=== PATIENT | female | born 1965 | race African-American/Black ===

== ENCOUNTER 2017-10-20 12:00 | Emergency (ER) | payer SELFPAY ==
[~2017-10-20] VITALS: Ht 157.5 cm; Wt 110.0 kg
[2017-10-20 12:15] VITALS: BP 165/90; PULSE 85; RESP 16; TEMP 98.1; O2SAT 100
[2017-10-20 13:06] VITALS: BP 167/106; PULSE 76; RESP 18; O2SAT 100
[2017-10-20] MEDS ORDERED: ASPI-516 CHEW (13:06)
--- NOTE | 2017-10-20 13:07 | PD ---
HPI Chief Complaint: Pain: Acute or Chronic Time Seen by Provider: 12:56 Travel History International Travel<30 days: No Contact w/Intl Traveler<30days: No Traveled to known affect area: No History of Present Illness HPI 52 YO F with PMH of CAD, s/p stent presents to the ED for evaluation of 1 month history of intermittent 2/10 posterior right calf pain. Pain is described as dull, no alleviating factors reported. She states that she does laps around the track and occasionally this exacerbates the pain but not every time. Radiates into the anterior eller. Onset approximately 1 month ago. She endorses preceding long drive, [place] She denies fevers, chills, shortness of breath, chest pain, palpitations. Patient takes an aspirin daily. She is a nonsmoker, does not use oral contraception, has never had a blood clot. She treated at home with Aleve with some improvement of symptoms. PFSH Past Medical History Cardiovascular Problems: Yes Social History Tobacco Use: No Allergies-Medications (Allergen,Severity, Reaction): Coded Allergies: No Known Allergies (Verified Allergy, Unknown, 10/20/17) Reported Meds & Prescriptions Reported Meds & Active Scripts Active Ibuprofen 600 Mg Tab 600 Mg PO Q8H Reported Aspirin 81 Mg Chew 81 Mg CHEW DAILY Review of Systems Except as stated in HPI: all other systems reviewed are Neg Physical Exam Narrative GENERAL: Well-nourished, well-developed pleasant -[place] female no acute distress. SKIN: Focused skin assessment warm/dry. HEAD: Normocephalic. EYES: No scleral icterus. No injection or drainage. NECK: Supple, trachea midline. No JVD or lymphadenopathy. CARDIOVASCULAR: Regular rate and rhythm without murmurs, gallops, or rubs. RESPIRATORY: Breath sounds equal bilaterally. No accessory muscle use. GASTROINTESTINAL: Abdomen soft, non-tender, nondistended. MUSCULOSKELETAL: No cyanosis, or edema. Ashleigh sign negative. No TTP of the anterior eller. Bounding DP pulse. Patient retains full, active, painless R OM of the extremity. She walks with a normal gait. BACK: Nontender without obvious deformity. No CVA tenderness. Data Data Last Documented VS Vital Signs Date Time Temp Pulse Resp B/P (MAP) Pulse Ox O2 Delivery O2 Flow Rate FiO2 10/20/17 16:57 10/20/17 13:06 76 18 100 Room Air 10/20/17 12:15 98.1 Orders Orders Us Leg Venous Doppler (10/20/17 12:57) Ed Discharge Order (10/20/17 16:35) [facility] Medical Decision Making Medical Screen Exam Complete: Yes Emergency Medical Condition: Yes Differential Diagnosis Musculoskeletal pain versus eller splints versus DVT versus other Narrative Course 52 YO F with PMH of CAD, s/p stent presents to the ED for evaluation of 1 month history of intermittent 2/10 posterior right calf pain. She states that she does laps around the track and occasionally this exacerbates the pain but not every time. Radiates into the anterior eller. Onset approximately 1 month ago. She endorses preceding long drive, [place] Vitals reviewed. On exam the patient has tenderness to palpation of the anterior eller , Homans sign negative. Ultrasound of the leg reveals no evidence of DVT. I discussed this with the patient. She is very relieved. I do note that her blood pressures been elevated while she is in the emergency room. Patient's instructed to keep a log of her BPs, follow with the [facility] for further evaluation. As far as the leg will try a short period of RICE therapy with anti -inflammatories daily. Patient's instructed to follow-up if her symptoms fail to resolve after this trial. She indicated understanding the instructions and is agreeable to the care plan. She was provided with the [facility] contact information. She is stable and discharged home. Diagnosis Primary Impression: Right leg pain Additional Impression: Elevated blood pressure reading Referrals: [facility] Primary Care Physician Additional Instructions: Rest, ice, elevate the extremity. Apply ice no longer than 10-15 minutes per hour a few times a day. 600 mg ibuprofen up to 3 times a day as needed for pain. Return to normal, gentle activity as tolerated. No running, jumping activities for the next few weeks. Follow up with orthopedist or your primary care provider. Your blood pressure has been elevated while in the emergency room. This needs to be followed up on outpatient basis. You should keep a log of your blood pressures and present to the primary care. If you do not have a primary care provider please follow-up with the [facility] clinic. Return to the ED for any urgent or emergent medical condition. Med/Other Pt SpecificInfo: Prescription(s) given Scripts Ibuprofen (Ibuprofen) 600 Mg Tab 600 MG PO Q8H, #15 TAB 0 Refills Prov: Ministerio Diaz MD 10/20/17 Disposition: 01 DISCHARGE HOME Condition: Stable Katrin Villa Oct 20, 2017 13:07
[2017-10-20 14:00] VITALS: BP 162/97
--- NOTE | 2017-10-20 16:28 | RADRPT ---
EXAM DATE: 10/20/2017 4:23 PM EDT AGE/SEX: 52 years / Female INDICATIONS: Right leg pain. CLINICAL DATA: This is the patient's initial encounter. Patient reports that signs and symptoms have been present for 1 month and indicates a pain score of 2/10. MEDICAL/SURGICAL HISTORY: Hypercholesterolemia. section. Hysterectomy. Tubal ligatio n. Cardiac catheterization. Coronary stent placement. COMPARISON: No prior [facility] exams available for comparison. TECHNIQUE: Venous ultrasound of both lower extremities was performed from the inguinal ligament to t he proximal calf. Real-time, color Doppler and spectral tracing, compression and augmentation techni ques were used. FINDINGS: There is normal compressibility of the deep venous system from the inguinal region to the proximal ca lf. No echogenic clot is seen in the lumen of the common femoral, femoral, popliteal, and posterior tibial veins. There is a normal response of the venous system to proximal and distal augmentation an d respiration. CONCLUSION: 1. No venous thrombosis of the right lower extremity. Electronically signed by: Geovanny Sylvester MD 10/20/2017 4:26 PM EDT
[2017-10-20] MEDS ORDERED: IBUP-232 PO (16:37)
[2017-10-20 17:03] VITALS: BP_SYST 166; BP_SYST 172; BP_DIAS 102; BP_DIAS 99
== END 2017-10-20 17:07 | disposition home or self-care (01) ==
LOC: NEPC 12:00
DX: M79.604 Pain in right leg (principal); R03.0 Elevated blood-pressure reading, without diagnosis of hypertension; I25.10 Atherosclerotic heart disease of native coronary artery without angina pectoris; Z79.82 Long term (current) use of aspirin
CPT/HCPCS: 93971; 99284